=== PATIENT | female | born 1950 | race African-American/Black ===

== ENCOUNTER 2017-01-28 13:49 | Emergency (ER) | payer MEDICARE, OTHER ==
--- NOTE | 2017-01-28 16:42 | RAD ---
ABDOMEN TWO VIEW 01/28/17 HISTORY: Abdominal pain. COMPARISON: None. FINDINGS: No dilated loops of large or small bowel. On the upright view, there is no air underneath the hemidi aphragms. There appears to be gallstones in the right upper quadrant of the abdomen. Extensive vascular calcif ications. There appears to be some opacities in the left lung base. Left heart border is obscured. IMPRESSION: 1. No evidence of bowel obstruction. 2. Obscuration of the left cardiac border. Recommend two views of the chest for further evaluat ion. POS: [facility]
== END 2017-01-28 14:38 | disposition home or self-care (01) ==
LOC: BURERS 13:49
DX: K59.00 Constipation, unspecified (principal); I13.2 Hypertensive heart and chronic kidney disease with heart failure and with stage 5 chronic kidney disease, or end stage renal disease; E11.22 Type 2 diabetes mellitus with diabetic chronic kidney disease; I50.9 Heart failure, unspecified; N18.6 End stage renal disease; F17.200 Nicotine dependence, unspecified, uncomplicated; F41.9 Anxiety disorder, unspecified; Z79.4 Long term (current) use of insulin
CPT/HCPCS: 74020